=== PATIENT | female | born 1975 | race African-American/Black ===

== ENCOUNTER 2023-08-16 22:29 | Emergency (ER) | payer MEDICAID, SELFPAY ==
[~2023-08-16] VITALS: Ht 160 cm; Wt 98.2 kg
[~2023-08-16 22:29] MED LIST: ALBU0.423 IH; ALBU17AE27 IH; ALBU2.5V IH
[2023-08-16 22:35] VITALS: TEMP 98.4
[2023-08-16] MEDS ORDERED: LOSA-382 PO (22:44)
[2023-08-16 23:00] VITALS: BP 132/75; PULSE 89; RESP 14
[2023-08-16] MEDS ORDERED: BACITRACIN 0.9 GM PACKET OINTMENT TP ONE (23:45)
[2023-08-16] MEDS ORDERED: PERTUSS(ACELL),DIPH,TET VAC/PF 0.5 ML SYRINGE IM. ONE (23:45)
[2023-08-16] MEDS ORDERED: LIDOCAINE 1% 10 ML VIAL SQ ONE (23:45)
[2023-08-17] MEDS ORDERED: CEPH-558 PO (00:28)
[2023-08-17] MEDS ORDERED: IBUP-1554 PO (00:28)
[2023-08-17] MEDS ORDERED: IBUPROFEN 600 MG TABLET PO ONE (00:30)
[2023-08-17] MEDS ORDERED: CEPHALEXIN MONOHYDRATE 500 MG CAPSULE PO ONE (00:30)
== END 2023-08-17 01:03 | disposition home or self-care (01) ==
LOC: EMS 22:30
DX: S81.812A Laceration without foreign body, left lower leg, initial encounter (principal); J45.909 Unspecified asthma, uncomplicated; I10 Essential (primary) hypertension; Z90.710 Acquired absence of both cervix and uterus; Z98.890 Other specified postprocedural states; W26.8XXA Contact with other sharp object(s), not elsewhere classified, initial encounter; Y93.89 Activity, other specified; Y92.89 Other specified places as the place of occurrence of the external cause; Y99.8 Other external cause status
CPT/HCPCS: 99284; 12032; 90715; 90471; J3490

== ENCOUNTER 2024-04-16 21:43 | Emergency (ER) | payer MEDICAID ==
[~2024-04-16] VITALS: Ht 160 cm; Wt 98.6 kg
[~2024-04-16 21:43] MED LIST changes: +CEPH-558 PO; +IBUP-1554 PO; +LOSA-382 PO
[2024-04-16 21:52] VITALS: TEMP 97.8
[2024-04-16 22:48] LABS: HEMATOCRIT 35.8 % (36-46); HEMOGLOBIN 11.5 g/dL (12.0-16.0); MEAN CORPUSCULAR HEMOGLOBIN 28.4 pg (26.0-34.0); MEAN CORPUSCULAR HGB CONC 32.2 G/dL (31.0-37.0); MEAN CORPUSCULAR VOLUME 88 fL (80-100); PLATELET COUNT (AUTO) 258 K/uL (150-450); RED BLOOD CELL COUNT(AUTO) 4.06 MIL/uL (4.00-5.20); RED CELL DISTRIBUTION WIDTH 19.9 % (11.5-14.5); WHITE BLOOD COUNT (AUTO) 5.4 K/uL (4.5-11.0)
[2024-04-16 22:58] LABS: ANION GAP 9 mmol/L (8-16); CALCIUM, TOTAL 8.9 mg/dL (8.8-10.5); CARBON DIOXIDE 28 mmol/L (22-29); CHLORIDE 103 mmol/L (98-107); CREATININE 1.14 mg/dL (0.60-1.30); GLOMERULAR FILTR. RATE CALC > 60 mL/min (>60); GLUCOSE,RANDOM 78 mg/dL (70-110); POTASSIUM 3.8 mmol/L (3.5-5.1); SODIUM SERUM 139 mmol/L (136-145); UREA NITROGEN, BLOOD 12 mg/dL (7-18)
[2024-04-16 23:22] LABS: BAND NEUTROPHILS % (MANUAL) 3 % (0-5); EOSINOPHILS % (MANUAL) 13 % (1-6); LYMPHOCYTES % (MANUAL) 39 % (22-44); MONOCYTES % (MANUAL) 8 % (2-9); SEGMENTED NEUTROPHILS % 37 % (40-70); TOTAL CELLS COUNTED 100
[2024-04-17 01:20] VITALS: PULSE 87; RESP 18; O2SAT 98
[2024-04-17] MEDS: ACETAMINOPHEN/CODEINE 300-30 MG TABLET PO ONE (01:21)
[2024-04-17] MEDS: MethylPREDNISolone SOD SUCC 125 MG/2 ML VIAL IM ONE (01:21)
[2024-04-17] MEDS: ALBUTEROL SULFATE 2.5 MG/0.5 ML 5 ML NEB SOLUTION NEB ONE (01:25)
[2024-04-17] MEDS: IPRATROPIUM BROMIDE 0.5 MG/2.5 ML NEB SOLUTION NEB ONE (01:25)
[2024-04-17 01:26] VITALS: PULSE 87; RESP 18; O2SAT 98
[2024-04-17 02:24] VITALS: BP 135/108; O2SAT 98
[2024-04-17] MEDS ORDERED: GUAIFDM PO (02:27)
[2024-04-17] MEDS ORDERED: ALBU2.5V39 NEB (02:27)
[2024-04-17] MEDS ORDERED: ACET-2080 PO (02:27)
[2024-04-17] MEDS ORDERED: PRED-554 PO (02:27)
[2024-04-17] MEDS ORDERED: ALBU18HF12 IH (02:27)
[2024-04-17 02:35] VITALS: PULSE 95; RESP 18; O2SAT 98
== END 2024-04-17 02:43 | disposition home or self-care (01) ==
LOC: EMS 21:43
DX: J20.9 Acute bronchitis, unspecified (principal); J45.901 Unspecified asthma with (acute) exacerbation; R07.89 Other chest pain; F12.90 Cannabis use, unspecified, uncomplicated; I10 Essential (primary) hypertension; Z88.0 Allergy status to penicillin; Z79.52 Long term (current) use of systemic steroids; Z90.710 Acquired absence of both cervix and uterus; Z79.899 Other long term (current) drug therapy
CPT/HCPCS: 99285; 71045; 80048; 85025; 36415; 93005; 94644; 96372; J2919